=== PATIENT | female | born 1990 | race Caucasian/White ===

== ENCOUNTER → 2022-06-02 | Outpatient (CLI) | payer OTHER ==
--- NOTE | 2022-06-03 19:23 | MR ---
EXAMINATION TYPE: MR cervical spine wo con DATE OF EXAM: 06/02/2022 COMPARISON: None HISTORY: 32-year-old female Numbness and tingling in arms and hands TECHNIQUE: Multiplanar, multisequence images of the cervical spine were acquired without contrast. FINDINGS: No craniocervical junction abnormality, predental space widening, or prevertebral soft tissue swellin g. Very minimal early intervertebral disc desiccation scattered throughout the cervical spine. No focal disc herniation or spinal canal stenosis. Vertebral body heights are preserved and alignment is maintained though there is some straightening o f the normal cervical lordosis. Suspicious bone marrow placement. No significant neuroforaminal stenosis. Normal course, caliber, and signal intensity of the cervical spinal cord. IMPRESSION: There may be very minimal early intervertebral disc desiccation scattered throughout the cervical spi ne. Otherwise, unremarkable cervical spine MRI.
== END | disposition home or self-care (01) ==
LOC: RADMRIMAIN 15:23
PROVIDERS: ATTEND Orthopaedic Surgery
DX: M54.12 Radiculopathy, cervical region (principal)
CPT/HCPCS: 72141

== ENCOUNTER → 2022-11-22 | Outpatient (CLI) | payer OTHER ==
--- NOTE | 2022-11-27 15:52 | MR ---
MRI left ankle HISTORY: Pain following trauma COMPARISON: None. TECHNIQUE: Multiecho multiplanar images left ankle were obtained without contrast. FINDINGS: There is a small focal area of bone marrow edema in the posterior talofibular in the attachment of th e posterior talofibular ligament. This is consistent with a small contusion but no discrete fracture. The posterior talofibular ligament as well as the anterior talofibular ligament and both the anterio r and posterior tibial fibular ligaments are intact. There is a small joint effusion. There is moderate soft tissue swelling in the medial and lateral soft tissues. The medial collateral ligaments are intact. There is no evidence of tendon injury of the extensor or flexor tendons or within the Achilles tendon . The sinus Tarsi is normal. The plantar tissues are normal IMPRESSION: 1. Small posterior talar contusion/edema with no discrete fractures of the visualized osseous structu res. 2. Soft tissue edema in the medial lateral soft tissues. 3. small joint effusion. 4. No ligamentous injury. 5. No tendon injury.
== END | disposition home or self-care (01) ==
LOC: RADMRIMAIN 20:10
PROVIDERS: ATTEND Orthopaedic Surgery
DX: S93.402A Sprain of unspecified ligament of left ankle, initial encounter (principal); M25.572 Pain in left ankle and joints of left foot; R60.0 Localized edema
CPT/HCPCS: 73723; A9585